=== PATIENT | male | born 1965 | race Caucasian/White ===

== ENCOUNTER 2017-01-28 10:30 | Emergency (ER) | payer MEDICAID ==
[2017-01-28 10:59] VITALS: BP 131/80; BMI 44.3
--- NOTE | 2017-01-28 11:01 | DR.GENAD ---
HPI - PCP Primary Care Physician: Josh - Complaint/Symptoms Chief Complaint Doctors Comments: Two days of fever, myalgia and not feeling weel. Chief Complaint:: fever WITH CONGESTION AND HEADACHE. HAS HAD NON PRODUCTIVE COUGH WITH BODY ACHES AND HX OF VALVES X2 REPLACED X1 YR AGO - Source History Provided: Patient, Family Member - Mode of Arrival Mode of Arrival: Ambulatory - Timing Onset of Chief Complaint: 01/21/17 PMH - PMH Past Medical History: Yes Past Medical History: Depression, Dyslipidemia, GERD, Hypertension, PUD Past Medical History Comment: VALVE DISEASE, Past Surgical History: Yes Surgical History: CABG/Valve Surgery - Family History History of Family Medical Conditions: Yes Family Medical History: Diabetes Mellitus, Cancer, Hypertension - Social History Alcohol Use: Rarely Do you use any recreational Drugs:: No Lives With: Family Lives Where: Home - infectious screening In the last 2 months have you had wt loss of >10#?: NO Have you had fever, night sweats or hemotysis?: No Have you traveled outside the country in the last 6 months?: No Isolation: Standard ROS - Review of Systems Constitutional: Chills, Fever, Malaise, Weakness, Loss of Appetite Eyes: No Symptoms Reported ENTM: No Symptoms Reported Respiratoy: No Symptoms Reported Cardiovascular: No Symptoms Reported Gastrointestinal/Abdominal: No Symptoms Reported Genitourinary: No Symptoms Reported Neurological: No Symptoms Reported Musculoskeletal: No Symptoms Reported Integumentary: No Symptoms Reported Hematologic/Lymphatic: No Symptoms Reported Endocrine: No Symptoms Reported Psychiatric: No Symptoms Reported All Other Systems: Reviewed and Negative PE - Vital Signs Vitals: Temperature 100.0 F Pulse Rate 99 Respiratory Rate 16 Blood Pressure 131/80 O2 Sat by Pulse Oximetry 95 Course - Reevaluation 1st: Unchanged ROR - Labs Reviewed Laboratory Results Reviewed?: Yes (positive influenza A) Laboratory: Influenza Type A (PCR) Positive (NEGATIVE) A 01/28/17 11:09 Influenza Type B (PCR) Negative (NEGATIVE) 01/28/17 11:09 Streptococcus Screen Negative (NEGATIVE) 01/28/17 11:09 - Diagnosis Discharge Problem: Influenza A - Discharge Plan Condition: Stable - Follow ups/Referrals Follow ups/Referrals: VIDAL MADRIGAL [Primary Care Provider] - 3 days - Instructions
== END 2017-01-28 12:43 | disposition home or self-care (01) ==
LOC: ER 11:03
DX: J11.1 Influenza due to unidentified influenza virus with other respiratory manifestations (principal)
CPT/HCPCS: 87070; 87502; 87880; 99282